=== PATIENT | male | born 1970 | race Hispanic/Latino ===

== ENCOUNTER 2016-04-09 03:28 | Emergency (ER) | payer OTHER ==
[~2016-04-09] VITALS: Ht 170.2 cm; Wt 113.6 kg
[~2016-04-09 03:28] MED LIST: GLIM2TAB2 PO; LISI10TA PO; METF1000 PO; SIMV10TA4 PO
[2016-04-09 03:32] VITALS: BP 139/90; PULSE 87; RESP 18; O2SAT 97
[2016-04-09 04:44] LABS: Mean Corpuscular Volume 91.2 fL (81-100)
[2016-04-09] MEDS ORDERED: Albuterol-Ipratropium 3 mL Inhalation Solution NEB ONE (05:55)
[2016-04-09 06:28] VITALS: PULSE 86; RESP 14; O2SAT 96
--- NOTE | 2016-04-09 06:29 | ED.REPORT ---
HPI-Dyspnea / Wheezing Date of Service Apr 09, 2016 ED Provider: Ace Rudd MD The patient is a 47 year old male with history of diabetes mellitus, hypertension, and high cholesterol, who presents to the emergency department complaining of shortness of breath. The patient has had a cough and congestion for the last week. He is feeling better except for the cough and shortness of breath. He has noticed inappropriate sweating with exertion. His symptoms are exacerbated with exertion and improved with rest. He denies chest pain, fever, chills, abdominal pain, vomiting or diarrhea. He does not smoke tobacco. Nursing Notes Stated Complaint: SOB/COUGH Chief Complaint: Respiratory Complaints Nursing Notes Reviewed: Yes ([employer], [facility] not reconciled) Allergies: Coded Allergies: No Known Allergies (Unverified , 04/09/16) Scheduled Amoxicillin (Amoxicillin) 500 Mg Tablet 500 MG PO TID Azithromycin (Zithromax (Z-Reilly)) 250 Mg Tablet 250 MG PO DIRECTED Take two tablets by mouth on day 1, then take one tablet daily on days 2 through 5. Glimepiride (Glimepiride) 2 Mg Tablet 2 MG PO DAILYAC Lactobacillus Acidophilus (Probiotic) 1 Each Capsule 1 EACH PO DAILY Lisinopril (Lisinopril) 10 Mg Tablet 10 MG PO DAILY Metformin (Glucophage) 1,000 Mg Tablet 1,000 MG PO BID Simvastatin (Simvastatin) 10 Mg Tablet 10 MG PO HS Scheduled PRN Benzonatate (Tessalon Perle) 100 Mg Capsule 200 MG PO TID PRN PRN For Cough General Time Seen by MD: 06:11 Chief Complaint Cough, Shortness of breath Hx Obtained From: Patient Arrived By: Walk-in Sudden in Onset?: No Onset Occurred: 1 week ago Symptom Duration: Since onset Location: : None Severity: Current: No pain currently Severity: Maximum: No pain Exacerbated by: Activity Relieved by: Rest Recent Healthcare: No recent doctor visit, No recent hospitalization Similar Sx Previous: No Past Medical History Past Medical History Diabetes Hypertension Hyperlipidemia Liver disease (BREWER) Obstructive sleep apnea on CPAP Past Surgical History Reports: Carpal tunnel Family History Noncontributory Smoking History Former Smoker Social History Other Social History: Local resident Ambulatory Status Independent Review of Systems Constitutional: Denies: Chills, Fever Respiratory: Reports: Dyspnea on exertion, Non-productive cough, Shortness of breath Cardiovascular: Denies: Chest pain Skin: Reports Diaphoresis Complete sys rev & neg: except as marked. GI: Denies: Abdominal pain, Diarrhea, Nausea, Vomiting Physical Exam Initial Vital Signs Vital Signs (First) Date Time Temp Pulse Resp B/P Pulse Ox O2 Delivery O2 Flow Rate FiO2 04/09/16 03:32 37.5 87 18 139/90 97 Room Air Initial VS: Reviewed, Vital signs normal Head / Eyes: Atraumatic, Normocephalic, PERRL ENT: Mucous membranes moist, Conjunctiva normal, No scleral icterus Abdomen / GI: Soft, Non-tender, No guarding, No rebound, No distention Lymphatic: No lymphadenopathy Extremities: Vascular intact, Neuro intact, No swelling, No tenderness Skin: Warm, Dry, No cyanosis Neurologic: Alert, Oriented, Nonfocal Psychiatric: Mood/affect normal, Behavior normal, Normal thought content General/Constitutional: Awake, Alert, Cooperative Appearance / Presentation: Positive: Obese (mild) Continuous cough throughout the entire exam Neck: Atraumatic, Supple, No meningismus, Full range of motion, No swelling, Non-tender, No masses Respiratory / Chest: Breath sounds = bilat, No respiratory distress Not dyspneic. Lung sounds are coarse. No bronchospasm following the treatment that was ordered by Dr. Williamson. Cardiovascular: Heart rate NL, Regular rhythm, Heart sounds NL, No gallop, No murmurs, No rubs, Peripheral circulation NL Lower Extremity / Pelvis / MS: Neurologic intact, Vascular intact, No edema Interpretation & Diagnostics Lab Results Interpretation Result Diagram: 04/09/16 0415 04/09/16 0415 Test 04/09/16 04:15 White Blood Count 11.6th/mm3 (3.8-10.1) Red Blood Count 4.65mil/mm3 (4.40-5.80) Hemoglobin 14.4g/dL (13.8-17.2) Hematocrit 42.4% (41.0-50.0) Mean Corpuscular Volume 91.2fL (81-100) Mean Corpuscular Hemoglobin 31.0pg (27.0-35.0) Mean Corpuscular Hemoglobin Concent 34.0% (32.0-37.0) Red Cell Distribution Width 12.5% (12.3-15.4) Platelet Count 234bil/L (150-400) Hold Purple Top Tube Received (Received) D-Dimer 0.6mg/L (<0.50) Hold Blue Top Tube Received (Received) Sodium Level 137mEq/L (134-144) Potassium Level 4.4mEq/L (3.5-5.2) Chloride Level 99mEq/L (97-108) Carbon Dioxide Level 27mmol/L (18-29) Blood Urea Nitrogen 18mg/dL (6-24) Creatinine 0.89mg/dL (0.76-1.27) Estimat Glomerular Filtration Rate 98mL/min (>59) Glucose Level 234mg/dL (60-99) Calcium Level 9.5mg/dL (8.5-10.1) Total Bilirubin 0.3mg/dL (0.0-1.2) Aspartate Amino Transf (AST/SGOT) 63U/L (0-50) Alanine Aminotransferase (ALT/SGPT) 98U/L (0-44) Alkaline Phosphatase 113U/L (25-150) Troponin T < 0.010ug/L (0.0-0.011) Total Protein 7.5g/dL (6.4-8.4) Albumin 4.1g/dL (3.4-5.0) Hold Red Top Tube Received (Received) Hold [place] Top Tube Received (Received) Lab Results Interpretation: CBC positive leukocytosis CMP mild hyperglycemia Troponin negative D-dimer elevated Blood cultures were ordered, but the antibiotics were inadvertently started before the second culture was drawn so the second culture was canceled ECG Interpretation ECG Interpretation: Normal sinus rhythm No acute ischemic changes No prior available for comparison Time: 07:20 Interpreted by: ED physician X-Ray Chest Interpretation Chest Xray Interpretation: There are hints of a left lower lobe infiltrate. Interpretation / Wet Read by: Interpret - ED physician CT Chest Interpretation CONCLUSION: No evidence of pulmonary embolism or dissection. Patchy interstitial in the left the lower lobe. Dictated by Grant Subramanian M.D Study type: CT pulm angiogram Interpretation / Wet Read by: Interpret - Radiologist Re-Eval/Medical Decision Med Decision/Clinical Course This is a 45-year-old male was initiated by Dr. Williamson the change of shift, who presents with a severe cough, increasing shortness of breath and fatigue over the past week with a concern for pneumonia. He has felt hot and cold, but not certain about fever. He denies any chest pain. He has no previous cardiac history, and no DVT/PE risk factors. The patient is not febrile, but has a relatively low O2 sat of 93% for a 45-year -old male without prior lung disease are smoking history. However he is not formally hypoxic. He is also not tachycardic or hypertensive. On exam he has a constant and uncomfortable cough, and was reported to have initial bronchospasm as well-although I do not appreciate this on my exam (post nebulizer). The patient had laboratory work which is notable for a nondiagnostic chest x- ray with a questionable pneumonia, and an elevated d-dimer. So CT was obtained and was negative for PE, positive for pneumonia - which fits clinically. The patient's EKG and troponin are negative, not evident finding evidence of acute cardiac syndrome clinically, or laboratory evaluation is pending at the risk factors of diabetes and hypertension. Patient is well enough for outpatient management. Given recent data indicates high resistance to azithromycin alone by strep pneumo, the patient received a dose of ceftriaxone and azithromycin in the department, has been discharged on amoxicillin plus azithromycin. A work note was also authored. Routine precautions were reviewed. Discharge instructions were reviewed. Patient's discharge in improved condition. Source of Hx: Old records Re-Evaluation/Progress : Time of Eval: 07:45 Re-Evaluation/Progress Note: Discussed plan for discharge. All questions were addressed. Differential Diagnosis: Positive: Pneumonia, Negative: Acute coronary syndrome, COPD exacerbation, Cardiogenic shock, Congestive heart failure, Pulmonary embolism Counseled Regarding: Diagnosis, Lab results, Need for follow-up, When/why to return to ED Discharge & Departure Impression: Primary Impression: Pneumonia Pneumonia type: due to unspecified organism Laterality: left Lung location : lower lobe of lung Qualified Code: J18.9 - Pneumonia, unspecified organism Disposition: Home Discharge Condition All VS Reviewed: Yes Condition: Stable Additional Instructions: 1. Your CT scan revealed a pneumonia as the cause of your symptoms. 2. You received your first dose of antibiotics via the IV, but you will need to continue oral antibiotics - the first dose of the oral medications will be tomorrow. 3. Take the antibiotic azithromycin 500mg tomorrow, then 250 mg once a day for 4 additional days after that. 4. Additionally, take the antibiotic amoxicillin 500mg 3 times a day for 10 days 5. Take it very easy. Rest. Drink plenty of fluids. Increase activities as tolerated. Given the antibiotics it will take several days before he really start to improve 6. I do recommend taking a "probiotic" to replace the normal intestinal bacteria that are killed as a side effect of the antibiotics. Take one daily and continue for an additional 10 days after your antibiotics are finished. 7. Unfortunately there are not great cough medicines available - you can take Tessalon Perles 200 mg 3 times a day as needed for cough 8. Follow-up with your doctor in about a week to 10 days 9. Return if new or worsening symptoms. Referrals: Casimiro Saldana (PCP) Scribe Attestation Portions of this note were transcribed by Eva Jade. I, Dr. Rudd personally performed the history, physical exam and medical decision-making; I reviewed and confirmed the accuracy of the information in the transcribed note. Signed by: Maximilian Robles, 04/09/2016 and 0815. copies to: Casimiro Saldana Matthew F MD Apr 09, 2016 06:29 Eva Jade Apr 09, 2016 06:41
[2016-04-09] MEDS ORDERED: Azithromycin Inj 500 MG in Dextrose 5% w/Vial Mate 250 ML IV ONE (06:40)
[2016-04-09] MEDS ORDERED: 0.9% Sodium Chloride 1,000 ML IV ONE (06:40)
[2016-04-09] MEDS ORDERED: cefTRIAXone Inj 2,000 MG in Dextrose 5% Minibag Plus 50 ML IV ONE (06:40)
[2016-04-09 07:27] VITALS: BP 128/84; RESP 20; O2SAT 93
[2016-04-09] MEDS ORDERED: AZIT250T4 PO (08:01)
[2016-04-09] MEDS ORDERED: BENZ-12 PO (08:01)
[2016-04-09] MEDS ORDERED: AMOX500T2 PO (08:01)
[2016-04-09] MEDS ORDERED: LACT1CAP65 PO (08:01)
[2016-04-09 09:08] VITALS: BP 128/84; PULSE 86; RESP 20; O2SAT 93
--- NOTE | 2016-04-09 10:16 | DRSVH ---
PROCEDURE: CT ANGIO CHEST PULMONARY EMBOLISM ([id number]) INDICATIONS: cough, dyspnea, elev dimer TECHNIQUE: After the administration of intravenous contrast, 2 mm thick sections acquired from the pulmonary api yfn to the posterior costophrenic angles. 3-dimensional maximum intensity projection (MIP) coronal a nd sagittal reformats were then acquired through the thorax. For radiation dose reduction, the follo wing was used: automated exposure control, adjustment of mA and/or kV according to patient size. COMPARISON: None. FINDINGS: Image quality: Excellent. Pulmonary arteries: Pulmonary arteries are normal in size, and demonstrate no intraluminal filling d efects to suggest central pulmonary embolism. Lungs and pleura: There is mild atelectasis versus mild airspace disease at the bilateral lung bases . Lungs are otherwise clear. No pleural effusions or pneumothorax. Central and peripheral airways a re patent. Mediastinum: Heart size is normal, without pericardial effusion. No mediastinal or hilar adenopathy . Thoracic aorta is normal in caliber and enhancement. Esophagus is normal in caliber, without hiat al hernia. Bones and chest wall: No suspicious bony lesions. Ribs and thoracic spine appear intact throughout. Thyroid gland is unremarkable. No axillary or supraclavicular adenopathy. Abdomen: Visualized upper abdominal solid organs appear normal in the early arterial phase of enhanc ement. IMPRESSION: 1. No acute pulmonary embolus. 2. Probable atelectasis at the lung bases in the setting of low lung volumes; however aspiration/infe ction could also be considered in the differential. Note: The preliminary [facility] interpretation and the final report are concordant. Dictated by: Martha Ward M.D. on 04/09/2016 at 10:03 Approved by: Martha Ward M.D. on 04/09/2016 at 10:14
--- NOTE | 2016-04-09 10:37 | DRSVH ---
PROCEDURE: X-RAY CHEST, TWO VIEWS ([id number]) INDICATIONS: shortness of breath, cough TECHNIQUE: 2 views of the chest were acquired. COMPARISON: None. FINDINGS: Surgical changes and devices: None. Lungs and pleura: No pleural effusions or pneumothorax. Lungs are clear. Mediastinum: Mediastinal contours are normal. Heart size is normal. Bones and chest wall: No suspicious bony abnormalities. Soft tissues appear unremarkable. IMPRESSION: No acute cardiopulmonary disease. Dictated by: Juan ANDRADE Interpreted: Paty Dias MD on 04/09/2016 at 10:34 Transcribed by: GERSON on 04/09/2016 at 10:37 Approved by: Paty Dias M.D. on 04/09/2016 at 17:22
== END 2016-04-09 09:11 | disposition home or self-care (01) ==
LOC: SED 03:28
DX: J18.9 Pneumonia, unspecified organism (principal); E11.9 Type 2 diabetes mellitus without complications; I10 Essential (primary) hypertension; E78.5 Hyperlipidemia, unspecified; Z79.84 Long term (current) use of oral hypoglycemic drugs; Z87.891 Personal history of nicotine dependence
CPT/HCPCS: 36415; 71020; 71275; 80053; 84484; 85027; 85379; 87040; 93005; 94640; 96361; 96365; 96367; 99285; J0456; J0696; J7030; J7620; Q9967